=== PATIENT | female | born 1975 | race Caucasian/White ===

== ENCOUNTER 2017-08-20 21:40 | Emergency (ER) | payer SELFPAY ==
[2017-08-20 21:54] VITALS: BP 143/75; PULSE 64; RESP 16; TEMP 98.1; O2SAT 95
[2017-08-20] MEDS ORDERED: AMOXICILLIN/CLAVULANATE POT 875/125 MG TAB PO ONE (22:26)
[2017-08-20] MEDS ORDERED: ONDANSETRON DISINTEGRATING 4 MG TAB PO ONE (22:26)
--- NOTE | 2017-08-20 22:27 | EDPHY ---
H & P Time Seen by Provider: 08/20/17 21:48 HPI/ROS: CC: ear pain HPI: This 42-year-old female presents to emergency department tonight with ear pain that has increased substantially over the last 24 hr. Her right ear hurts greater than the left. She rates it at 9/10. Ibuprofen brought it down to 7/ 10. It has been increasing over the last 2 weeks over which time she also had an upper respiratory infection with sinus congestion and a cough. She has felt hot and cold and has had a scratchy throat. She thinks she has had a low-grade temperature. All her kids are sick. REVIEW OF SYSTEMS: Constitutional: No chills. Eyes: No discharge. ENT: No sore throat. See HPI Respiratory: See HPI. Cardiac: No chest pain, no palpitations. Gastrointestinal: No abdominal pain, no vomiting. Genitourinary: No hematuria. Musculoskeletal: No back pain. Skin: No rashes. Neurological: No headache. Past Medical/Surgical History: Past medical history denied Past surgical history reconstructive surgery in both ears as a child Family history significant for mother having breast cancer and mixed connective tissue disease, father had coronary artery disease Allergies to Bactrim which causes a rash Medications denied Primary care provider is Fariba Martinez [facility] Social History: The patient denies tobacco use; she has approximately 3 drinks per week; no marijuana use; with 2-year-old twins and a 7-year-old Smoking Status: Never smoked Physical Exam: General Appearance: Alert, mod distress. Eyes: Pupils equal and round no pallor or injection. ENT, Mouth: Mucous membranes are moist. Right TM with erythema and fluid behind tympanic membrane; dull. No perforation. No tenderness over mastoid. Respiratory: There are no retractions, lungs are clear to auscultation. Cardiovascular: Regular rate and rhythm. Gastrointestinal: Abdomen is soft and nontender, no masses, bowel sounds normal. Neurological: Awake and alert, sensory and motor exams grossly normal. Skin: Warm and dry, no rashes. Musculoskeletal: Neck is supple nontender. Extremities are symmetrical, full range of motion. Psychiatric: Patient is oriented X 3, there is no agitation. DIFFERENTIAL DIAGNOSIS: After history and physical exam differential diagnosis was considered for but not limited to: Otitis media, otitis externa, mastoiditis unlikely. Constitutional: Initial Vital Signs Temperature (C) 98.1 F 08/20/17 21:45 Heart Rate 64 08/20/17 21:45 Respiratory Rate 16 08/20/17 21:45 Blood Pressure 143/75 H 08/20/17 21:45 O2 Sat (%) 95 08/20/17 21:45 O2 Delivery Mode Room Air Allergies/Adverse Reactions: sulfamethoxazole [From Bactrim] Allergy (Verified 08/20/17 21:47) trimethoprim [From Bactrim] Allergy (Verified 08/20/17 21:47) Home Medications: Medication Instructions Recorded Amoxicillin/Clavulanate Pot 875 mg PO BID #20 tab 08/20/17 [Augmentin 875 MG TAB (*)] Medical Decision Making ED Course/Re-evaluation: The patient was seen and examined. Vital signs reviewed. She was given a prescription for Augmentin. She will continue ibuprofen. She will follow up with the primary care provider as needed or return to the emergency room sooner if any further problems or concerns. - Data Points Medications Given: Discontinued Medications Amoxicillin/Clavulanate Potassium (Augmentin 875mg) 875 mg PO EDNOW ONE PRN Reason: Protocol Stop: 08/20/17 22:27 Last Admin: 08/20/17 22:32 Dose: 875 mg Ondansetron HCl (Zofran Odt) 4 mg PO EDNOW ONE Stop: 08/20/17 22:27 Last Admin: 08/20/17 22:31 Dose: 4 mg Departure - Departure Disposition: Home, Routine, Self-Care Clinical Impression: Acute otitis media Condition: Good Instructions: Amoxicillin/Clavulanate Potassium (By mouth), Ondansetron (By mouth), Ear Infection (ED) Additional Instructions: Follow up with your primary care provider in 7-10 days if needed. Return to the ER if any further problems or concerns. Referrals: FARIBA NGUYEN [Primary Care Provider] - As per Instructions Prescriptions: Amoxicillin/Clavulanate Pot [Augmentin 875 MG TAB (*)] 875 mg PO BID #20 tab
== END 2017-08-20 22:42 | disposition home or self-care (01) ==
LOC: CED 21:40
DX: H66.91 Otitis media, unspecified, right ear (principal)